=== PATIENT | female | born 1970 | race African-American/Black ===

== ENCOUNTER 2017-06-01 11:16 | Inpatient (IN) | payer BC, MEDICAID ==
[~2017-06-01] VITALS: Ht 172.7 cm; Wt 76.2 kg
[2017-06-01 11:35] VITALS: BP 133/75
[2017-06-01 12:29] LABS: BASOPHILS % (AUTO) 0.7 % (0.0-2.0); EOSINOPHILS % (AUTO) 0.9 % (0.0-3.0); LYMPHOCYTES % (AUTO) 26.4 % (20.0-45.0); MEAN CORPUSCULAR HEMOGLOBIN 27.8 PG (27.0-31.0); MEAN CORPUSCULAR HGB CONC 30.4 G/DL (32.0-36.0); MEAN CORPUSCULAR VOLUME 91 FL (80-99); MEAN PLATELET VOLUME 6.3 FL (6.5-10.1); MONOCYTES % (AUTO) 5.7 % (1.0-10.0); NEUTROPHILS % (AUTO) 66.3 % (45.0-75.0); PLATELET COUNT 295 K/UL (150-450); RED BLOOD COUNT 5.21 M/UL (4.20-5.40); RED CELL DISTRIBUTION WIDTH 14.4 % (11.6-14.8); WHITE BLOOD COUNT 9.9 K/UL (4.8-10.8)
[2017-06-01 12:42] LABS: ALANINE AMINOTRANSFERASE 15 U/L (3-33); ALBUMIN/GLOBULIN RATIO 1.7 (1.0-2.7); ANION GAP 13 (5-15); ASPARTATE AMINO TRANSFERASE 13 U/L (5-40); CALCIUM 9.5 mg/dL (8.6-10.2); CARBON DIOXIDE 25 mEQ/L (20-30); CHLORIDE 104 mEQ/L (98-107); GLOMERULAR FILTRATION RATE > 60 mL/min (>60); HEMOLYSIS 8; POTASSIUM 3.5 mEQ/L (3.4-4.9); SODIUM 142 mEQ/L (135-145); TOTAL PROTEIN 6.9 g/dL (6.6-8.7); TROPONIN I < 0.30 ng/mL (<=0.30)
[2017-06-01 12:52] LABS: CKMB < 1.5 ng/mL (< 3.8)
[2017-06-01 13:33] VITALS: BP 131/77
[2017-06-01] MEDS ORDERED: DICLOFENAC SODI75 MG ORAL (13:33)
[2017-06-01] MEDS ORDERED: GABAPENTIN300 MG ORAL (13:33)
[2017-06-01] MEDS ORDERED: METFORMIN HCL500 M1 ORAL (13:33)
[2017-06-01] MEDS ORDERED: CYCLOBENZAPRINE10 MG ORAL (13:33)
[2017-06-01] MEDS ORDERED: TOPIRAMATE100 MG ORAL (13:37)
[2017-06-01] MEDS ORDERED: PYRIDOSTIGMINE60 M1 PO (13:37)
[2017-06-01] MEDS ORDERED: ANUSOL HC1 SUPP RECTAL (13:37)
[2017-06-01] MEDS ORDERED: NATURE-THROI16.25 MG PO (13:37)
[2017-06-01] MEDS ORDERED: MIRALAX17 G2 ORAL (13:48)
[2017-06-01] MEDS ORDERED: KRILL OIL500 MG PO (13:48)
[2017-06-01] MEDS ORDERED: MIACALCIN1 SPRAYS NASAL (13:48)
[2017-06-01] MEDS ORDERED: PROBIOTIC1 EAC5 PO (13:48)
[2017-06-01] MEDS ORDERED: TRULANCE3 MG PO (13:48)
[2017-06-01] MEDS ORDERED: ALLEGRA ALLERG180 M1 PO (13:48)
[2017-06-01] MEDS ORDERED: CURCUMIN1 GM PO (13:48)
[2017-06-01] MEDS ORDERED: MELATONIN5 M6 PO (13:48)
[2017-06-01] MEDS ORDERED: CALCIUM CITRAT200 M1 PO (13:48)
[2017-06-01] MEDS ORDERED: SAME200 MG PO (13:48)
[2017-06-01] MEDS ORDERED: MAGNESIUM400 M1 PO (13:48)
[2017-06-01] MEDS ORDERED: [UNRECOGNIZED DRUG - OTHER] MC (13:48)
[2017-06-01] MEDS ORDERED: PROGESTERONE100 MG PO (13:48)
[2017-06-01] MEDS ORDERED: VITAMIN E200 UNI2 PO (13:50)
[2017-06-01] MEDS ORDERED: TAURINE PO (13:50)
[2017-06-01] MEDS ORDERED: VITAMIN D400 INTLU ORAL (13:50)
[2017-06-01] MEDS ORDERED: VITAMIN C1000 M4 PO (13:50)
[2017-06-01] MEDS ORDERED: STOOL SOFTENER100 M1 PO (13:50)
--- NOTE | 2017-06-01 13:54 | Diagnostic Imaging Report ---
Indication: Chest pain Comparison: None A single view chest radiograph was obtained. Findings: Cardiomediastinal appearance is within normal limits for age. Pulmonary vascularity is appropriate. The diaphragmatic contour is smooth and costophrenic angles are sharp. No pleural effusions are identified. The bones are unremarkable. Impression: No acute findings
[2017-06-01] MEDS ORDERED: Nitroglycerin Subl 0.4mg tab SL ONE (14:32)
[2017-06-01] MEDS ORDERED: Nitroglycerin Subl 0.4mg tab SL PRN (14:45)
--- NOTE | 2017-06-01 14:53 | Emergency Room Report ---
History of Present Illness General Chief Complaint: Chest Pain Source: Patient Present Illness HPI 47-year-old female presents ED complaining of chest pain. Patient states chest pain started today while she was across street at a doctor's office. Patient states the pain started while she was laying down did not improve so the doctor told her to come to the ER for evaluation. Pain is left-sided, sharp, 8/10, nonradiating. Intermittent. Denies shortness of breath. Patient currently has no chest pain on evaluation. Denies smoking or drug use. No other aggravating relieving factors. Denies any other associated symptoms Allergies: Coded Allergies: BACLOFEN (Verified Allergy, Unknown, 06/01/17) CINNAMON (Verified Allergy, Unknown, 06/01/17) CIPROFLOXACIN (Verified Allergy, Unknown, 06/01/17) CLAMS (Verified Allergy, Unknown, 06/01/17) DULOXETINE (Verified Allergy, Unknown, 06/01/17) MEPERIDINE (Verified Allergy, Unknown, 06/01/17) METHYLPREDNISOLONE (Verified Allergy, Unknown, 06/01/17) Uncoded Allergies: CODIENE (Allergy, Unknown, 06/01/17) PEANUTS (Allergy, Unknown, 06/01/17) PECANS (Allergy, Unknown, 06/01/17) QUINOLONE (Allergy, Unknown, 06/01/17) SULFA (Allergy, Unknown, 06/01/17) Patient History Past Medical History: DM, asthma, migraines, other - gastroparesis Past Surgical History: none Pertinent Family History: none Social History: Denies: smoking, alcohol use, drug use Last Menstrual Period: Post [place] Now: No Immunizations: UTD Reviewed Nursing Documentation: PMH: Agreed, PSxH: Agreed Nursing Documentation-PMH Past Medical History: No History, Except For Hx Cardiac Problems: No Hx Hypertension: No Hx Pacemaker: No Hx Asthma: Yes - reactive airways Hx COPD: No Hx Diabetes: Yes - Insulin ressistant Hx Cancer: No Hx Gastrointestinal Problems: Yes - gastroperisis Hx Dialysis: No History Of Psychiatric Problem: No Hx Neurological Problems: Yes - Migraines Hx Cerebrovascular Accident: No Hx Seizures: No Review of Systems All Other Systems: negative except mentioned in HPI Physical Exam Vital Signs Date Time Temp Pulse Resp B/P (MAP) Pulse Ox O2 Delivery O2 Flow Rate FiO2 06/01/17 11:22 97.7 77 17 146/88 100 Room Air Sp02 EP Interpretation: reviewed, normal General Appearance: no apparent distress, alert, GCS 15, non-toxic Head: normocephalic, atraumatic Eyes: bilateral eye normal inspection, bilateral eye PERRL ENT: hearing grossly normal, normal pharynx, no angioedema, normal voice Neck: full range of motion, supple/symm/no masses Respiratory: chest non-tender, lungs clear, normal breath sounds, speaking full sentences Cardiovascular #1: regular rate, rhythm, no edema Cardiovascular #2: 2+ carotid (R), 2+ carotid (L), 2+ radial (R), 2+ radial (L) , 2+ dorsalis pedis (R), 2+ dorsalis pedis (L) Gastrointestinal: normal bowel sounds, non tender, soft, non-distended, no guarding, no rebound Rectal: deferred Genitourinary: normal inspection, no CVA tenderness Musculoskeletal: back normal, gait/station normal, normal range of motion, non- tender Neurologic: alert, oriented x3, responsive, motor strength/tone normal, sensory intact, speech normal Psychiatric: judgement/insight normal, memory normal, mood/affect normal, no suicidal/homicidal ideation Reflexes: 3+ bicep (R), 3+ bicep (L), 3+ tricep (R), 3+ tricep (L), 3+ knee (R) , 3+ knee (L) Skin: normal color, no rash, warm/dry, well hydrated Lymphatic: no adenopathy Medical Decision Making Diagnostic Impression: Primary Impression: ACS (acute coronary syndrome) ER Course Hospital Course 47-year-old female presents ED complaining of left-sided chest pain Differential diagnoses include: NC/unstable angina, contusion, muscle strain, PTX, rib fracture Clinical course Patient placed on stretcher. on cardiac surgeon. After initial history and physical I ordered labs, EKG, chest x-ray labs reviewed- no leukocytosis, hemoglobin/hematocrit stable, electrolytes okay , troponins negative EKG-normal sinus rhythm no acute ischemic changes interpreted by me Chest x-ray- unremarkable Intermittent presentation is concerning and I believe patient should be admitted. Given nitroglycerin for the chest pain. given aspirin Case discussed with Dr. Esquivel and he agreed to accept the patient to his service for further care and support I. I feel this is a highly complex case requiring extensive working including EKG/Rhythm strip, Xray/CT/US, Blood/urine lab work, repeat exams while in ED, and administration of strong opiates/narcotics for pain control, admission to hospital or close patient follow up. Diagnosis - ACS admitted to telemetry in serious condition Labs Test 06/01/17 12:10 06/01/17 12:39 White Blood Count 9.9 K/UL (4.8-10.8) Red Blood Count 5.21 M/UL (4.20-5.40) Hemoglobin 14.5 G/DL (12.0-16.0) Hematocrit 47.6 % (37.0-47.0) Mean Corpuscular Volume 91 FL (80-99) Mean Corpuscular Hemoglobin 27.8 PG (27.0-31.0) Mean Corpuscular Hemoglobin Concent 30.4 G/DL (32.0-36.0) Red Cell Distribution Width 14.4 % (11.6-14.8) Platelet Count 295 K/UL (150-450) Mean Platelet Volume 6.3 FL (6.5-10.1) Neutrophils (%) (Auto) 66.3 % (45.0-75.0) Lymphocytes (%) (Auto) 26.4 % (20.0-45.0) Monocytes (%) (Auto) 5.7 % (1.0-10.0) Eosinophils (%) (Auto) 0.9 % (0.0-3.0) Basophils (%) (Auto) 0.7 % (0.0-2.0) Sodium Level 142 mEQ/L (135-145) Potassium Level 3.5 mEQ/L (3.4-4.9) Chloride Level 104 mEQ/L (98-107) Carbon Dioxide Level 25 mEQ/L (20-30) Anion Gap 13 (5-15) Blood Urea Nitrogen 15 mg/dL (7-23) Creatinine 1.0 mg/dL (0.5-0.9) Estimat Glomerular Filtration Rate > 60 mL/min (>60) Glucose Level 87 mg/dL (74-106) Calcium Level 9.5 mg/dL (8.6-10.2) Total Bilirubin < 0.2 mg/dL (0.0-1.2) Aspartate Amino Transf (AST/SGOT) 13 U/L (5-40) Alanine Aminotransferase (ALT/SGPT) 15 U/L (3-33) Alkaline Phosphatase 56 U/L (35-104) Total Creatine Kinase 72 U/L (26-140) Creatine Kinase MB < 1.5 ng/mL (< 3.8) Creatine Kinase MB Relative Index 2.0 Troponin I < 0.30 ng/mL (<=0.30) Pro-B-Type Natriuretic Peptide 97 pg/mL (0-125) Total Protein 6.9 g/dL (6.6-8.7) Albumin 4.4 g/dL (3.5-5.2) Globulin 2.5 g/dL Albumin/Globulin Ratio 1.7 (1.0-2.7) Urine HCG, Qualitative Negative EKG Diagnostic Results Rate: normal Rhythm: NSR ST Segments: no acute changes ASA given to the pt in ED: Yes Rhythm Strip Diag. Results EP Interpretation: yes Rhythm: NSR, no PVC's, no ectopy Chest X-Ray Diagnostic Results Chest X-Ray Diagnostic Results : Chest X-Ray Ordered: Yes # of Views/Limited/Complete: 1 View Indication: Chest Pain EP Interpretation: Yes Interpretation: no consolidation, no effusion, no pneumothorax, no acute cardiopulmonary disease Impression: No acute disease Interpreting ER Provider: Electronically signed by Ulysses Pichardo MD Last Vital Signs Date Time Temp Pulse Resp B/P (MAP) Pulse Ox O2 Delivery O2 Flow Rate FiO2 06/01/17 14:38 118/72 06/01/17 13:33 97.1 68 16 100 Room Air Status: improved Disposition: ADMITTED INPATIENT Condition: Serious Referrals: NON PHYSICIAN (PCP) ULYSSES PICHARDO M.D. Jun 01, 2017 14:53
[2017-06-01 15:21] VITALS: BP 122/75
[2017-06-01] MEDS ORDERED: DuoNeb 0.5-3(2.5)mg/3ml neb HHN PRN (16:00)
[2017-06-01] MEDS ORDERED: Morphine Sulfate 4mg/ml Inj IVP PRN (16:00)
[2017-06-01] MEDS ORDERED: Zolpidem 5mg tab ORAL PRN (16:00)
[2017-06-01] MEDS ORDERED: Mylanta II UD 30ml ORAL PRN (16:00)
[2017-06-01] MEDS ORDERED: Morphine Sulfate 2mg/ml Inj IVP PRN (16:00)
[2017-06-01] MEDS ORDERED: Milk of Magnesia 30ml Ud ORAL PRN (16:00)
[2017-06-01 16:06] VITALS: BP 125/78
--- NOTE | 2017-06-01 16:09 | History and Physical ---
History of Present Illness General Date patient seen: Jun 01, 2017 Time patient seen: 16:09 Reason for Hospitalization: Chest Pain Present Illness HPI 47yo female with pmh of depression/anxiety, chronic back pain, migraines, asthma who presents with chest pain. Patient states chest pain started today while she was across street at a doctor's office. Patient states the pain started while she was laying down did not improve so the doctor told her to come to the ER for evaluation. Pain is left-sided, sharp, 8/10, nonradiating. Intermittent. Denies shortness of breath, f/c, n/v, d/c, abd pain. Allergies: Coded Allergies: BACLOFEN (Verified Allergy, Unknown, 06/01/17) CINNAMON (Verified Allergy, Unknown, 06/01/17) CIPROFLOXACIN (Verified Allergy, Unknown, 06/01/17) CLAMS (Verified Allergy, Unknown, 06/01/17) DULOXETINE (Verified Allergy, Unknown, 06/01/17) MEPERIDINE (Verified Allergy, Unknown, 06/01/17) METHYLPREDNISOLONE (Verified Allergy, Unknown, 06/01/17) Uncoded Allergies: CODIENE (Allergy, Unknown, 06/01/17) PEANUTS (Allergy, Unknown, 06/01/17) PECANS (Allergy, Unknown, 06/01/17) QUINOLONE (Allergy, Unknown, 06/01/17) SULFA (Allergy, Unknown, 06/01/17) Medication History Scheduled Ascorbic Acid (Vitamin C), 1,000 MG PO DAILY, (Reported) Calcitonin Paxton (Miacalcin), 1 SPRAYS NASAL DAILY, (Reported) Calcium Citrate (Calcium Citrate), 630 MG PO DAILY, (Reported) Cyclobenzaprine Hcl* (Flexeril*), 10 MG ORAL DAILY, (Reported) Diclofenac Sod* (Voltaren*), 75 MG ORAL BID, (Reported) Docusate Sodium (Stool Softener), 100 MG PO BID, (Reported) Fexofenadine Hcl (Trang Allergy), 180 MG PO DAILY, (Reported) Gabapentin* (Gabapentin*), 300 MG ORAL THREE TIMES A DAY, (Reported) Hydrocortisone (Anucort-Hc), 25 MG RECTAL PRN, (Reported) Krill Oil (Krill Oil), Unknown Dose PO DAILY, (Reported) Lactobacillus Combo No.11 (Probiotic), 1 EACH PO DAILY, (Reported) Magnesium Oxide (Magnesium), 400 MG PO DAILY, (Reported) Melatonin (Melatonin), 10 MG PO DAILY, (Reported) Metformin Hcl* (Metformin Hcl*), 500 MG ORAL DAILY, (Reported) Plecanatide (Trulance), 3 MG PO DAILY, (Reported) Polyethylene Glycol 3350* (Miralax*), Unknown Dose ORAL DAILY, (Reported) Progesterone,Micronized (Progesterone), 100 MG PO DAILY, (Reported) Pyridostigmine Bradford (Pyridostigmine Bradford), 60 MG PO TID, (Reported) S-Adenosylmethionine Sul Tosyl (Same), 400 MG PO DAILY, (Reported) Serotonin Hcl (Serotonin Hcl), 1 GM MC BID, (Reported) Taurine (Taurine), 500 MG PO BID, (Reported) Thyroid,Pork (Nature-Throid), 16.25 MG PO DAILY, (Reported) Topiramate* (Topamax*), 100 MG ORAL TWICE A DAY, (Reported) Turmeric (Curcumin), 500 GM PO DAILY, (Reported) Vitamin D (Vitamin D3), 2,000 MG ORAL DAILY, (Reported) Vitamin E (Dl,Tocopheryl Acet) (Vitamin E), 400 UNIT PO DAILY, (Reported) Patient History Healthcare decision maker Resuscitation status Advanced Directive on File Past Medical/Surgical History Past Medical/Surgical History: (1) Depression (2) DM2 (diabetes mellitus, type 2) (3) Hypothyroidism (4) Chronic back pain (5) Migraines (6) Asthma Family History Family History: Patient reports no known family medical history. Social History Social History: (1) No significant social history Review of Systems ROS Narrative CONSTITUTIONAL: No weight loss, fever, chills, weakness or fatigue. HEENT: Eyes: No visual loss, blurred vision, double vision or yellow sclerae. Ears, Nose, Throat: No hearing loss, sneezing, congestion, runny nose or sore throat. SKIN: No rash or itching. CARDIOVASCULAR: +chest pain, chest pressure or chest discomfort. No palpitations or edema. RESPIRATORY: No shortness of breath, cough or sputum. GASTROINTESTINAL: No anorexia, nausea, vomiting or diarrhea. No abdominal pain or blood. NEUROLOGICAL: No headache, dizziness, syncope, paralysis, ataxia, numbness or tingling in the extremities. No change in bowel or bladder control. MUSCULOSKELETAL: No muscle, back pain, joint pain or stiffness. HEMATOLOGIC: No anemia, bleeding or bruising. LYMPHATICS: No enlarged nodes. No history of splenectomy. PSYCHIATRIC: No history of depression or anxiety. ENDOCRINOLOGIC: No reports of sweating, cold or heat intolerance. No polyuria or polydipsia. ALLERGIES: No history of asthma, hives, eczema or rhinitis. Physical Exam Physical Exam Narrative General: alert, cooperative, no distress, appears stated age Head: normocephalic, without obvious abnormality, atraumatic Eyes: conjunctivae/corneas clear. PERRL, EOM's intact Throat: lips, mucosa, and tongue normal. MMM Neck: supple, symmetrical, trachea midline, and no JVD Lungs: clear to auscultation bilaterally Heart: regular rate and rhythm, S1, S2 normal, no murmur, click, rub or gallop Abdomen: soft, non-tender, non-distended, bowel sounds normal; no masses or organomegaly Extremities: extremities normal, atraumatic, no cyanosis or edema Pulses: 2+ and symmetric Skin: skin color, texture, turgor normal; no rashes or lesions Neurologic: grossly normal, no focal deficits Last 24 Hour Vital Signs Date Time Temp Pulse Resp B/P (MAP) Pulse Ox O2 Delivery O2 Flow Rate FiO2 06/01/17 16:06 97.0 75 18 125/78 99 Room Air 06/01/17 15:45 64 16 122/75 100 Room Air 06/01/17 15:21 63 16 122/75 96 Room Air 06/01/17 14:38 118/72 06/01/17 13:33 97.1 68 16 131/77 100 Room Air 06/01/17 11:35 98.0 78 15 133/75 100 Room Air 06/01/17 11:35 78 15 Room Air 06/01/17 11:22 97.7 77 17 146/88 100 Room Air Laboratory Tests Test 06/01/17 12:10 06/01/17 12:39 White Blood Count 9.9 K/UL (4.8-10.8) Red Blood Count 5.21 M/UL (4.20-5.40) Hemoglobin 14.5 G/DL (12.0-16.0) Hematocrit 47.6 % (37.0-47.0) H Mean Corpuscular Volume 91 FL (80-99) Mean Corpuscular Hemoglobin 27.8 PG (27.0-31.0) Mean Corpuscular Hemoglobin Concent 30.4 G/DL (32.0-36.0) L Red Cell Distribution Width 14.4 % (11.6-14.8) Platelet Count 295 K/UL (150-450) Mean Platelet Volume 6.3 FL (6.5-10.1) L Neutrophils (%) (Auto) 66.3 % (45.0-75.0) Lymphocytes (%) (Auto) 26.4 % (20.0-45.0) Monocytes (%) (Auto) 5.7 % (1.0-10.0) Eosinophils (%) (Auto) 0.9 % (0.0-3.0) Basophils (%) (Auto) 0.7 % (0.0-2.0) Sodium Level 142 mEQ/L (135-145) Potassium Level 3.5 mEQ/L (3.4-4.9) Chloride Level 104 mEQ/L (98-107) Carbon Dioxide Level 25 mEQ/L (20-30) Anion Gap 13 (5-15) Blood Urea Nitrogen 15 mg/dL (7-23) Creatinine 1.0 mg/dL (0.5-0.9) H Estimat Glomerular Filtration Rate > 60 mL/min (>60) Glucose Level 87 mg/dL (74-106) Calcium Level 9.5 mg/dL (8.6-10.2) Total Bilirubin < 0.2 mg/dL (0.0-1.2) Aspartate Amino Transf (AST/SGOT) 13 U/L (5-40) Alanine Aminotransferase (ALT/SGPT) 15 U/L (3-33) Alkaline Phosphatase 56 U/L (35-104) Total Creatine Kinase 72 U/L (26-140) Creatine Kinase MB < 1.5 ng/mL (< 3.8) Creatine Kinase MB Relative Index 2.0 Troponin I < 0.30 ng/mL (<=0.30) Pro-B-Type Natriuretic Peptide 97 pg/mL (0-125) Total Protein 6.9 g/dL (6.6-8.7) Albumin 4.4 g/dL (3.5-5.2) Globulin 2.5 g/dL Albumin/Globulin Ratio 1.7 (1.0-2.7) Urine HCG, Qualitative Negative Height (Feet): 5 Height (Inches): 8.00 Weight (Pounds): 168 Medications Current Medications Medications (Trade) Dose Ordered Sig/Shayy Route PRN Reason Start Time Stop Time Status Last Admin Dose Admin Nitroglycerin (Ntg) 0.4 mg Q5M PRN SL Prn Chest Pain 06/01/17 14:45 07/01/17 14:44 06/01/17 14:38 Assessment/Plan Problem List: (1) Chest pain ICD Codes: R07.9 - Chest pain, unspecified SNOMED: 08526733 (2) DM2 (diabetes mellitus, type 2) ICD Codes: E11.9 - Type 2 diabetes mellitus without complications SNOMED: 75214136 (3) Hypothyroidism ICD Codes: E03.9 - Hypothyroidism, unspecified SNOMED: 01466050 (4) Depression ICD Codes: F32.9 - Major depressive disorder, single episode, unspecified SNOMED: 75654017 (5) Chronic back pain ICD Codes: M54.9 - Dorsalgia, unspecified; G89.29 - Other chronic pain SNOMED: 675618006 Status: stable Assessment/Plan Admit inpt Trend trop/ekg Check TTE Cardiology consulted Nuc stress test ordered Check lipid panel, A1C, TSH Cont home meds HSQ for DVT ppx FULL CODE D/w pt, RN, cardiology regarding mgmt and dispo Jf Cabral M.D. Jun 01, 2017 16:09
[2017-06-01] MEDS ORDERED: traMADol 50mg tab ORAL PRN (17:30)
[2017-06-01] MEDS ORDERED: Miralax 17gm pkt ORAL PRN (17:30)
--- NOTE | 2017-06-01 17:50 | Cardiac Electrophysiology PN ---
Subjective Subjective [id number] Objective Last 24 Hour Vital Signs Date Time Temp Pulse Resp B/P (MAP) Pulse Ox O2 Delivery O2 Flow Rate FiO2 06/01/17 16:06 97.0 75 18 125/78 99 Room Air 06/01/17 15:45 64 16 122/75 100 Room Air 06/01/17 15:21 63 16 122/75 96 Room Air 06/01/17 14:38 118/72 06/01/17 13:33 97.1 68 16 131/77 100 Room Air 06/01/17 11:35 98.0 78 15 133/75 100 Room Air 06/01/17 11:35 78 15 Room Air 06/01/17 11:22 97.7 77 17 146/88 100 Room Air Laboratory Tests Test 06/01/17 12:10 06/01/17 12:39 06/01/17 17:30 White Blood Count 9.9 K/UL (4.8-10.8) Red Blood Count 5.21 M/UL (4.20-5.40) Hemoglobin 14.5 G/DL (12.0-16.0) Hematocrit 47.6 % (37.0-47.0) H Mean Corpuscular Volume 91 FL (80-99) Mean Corpuscular Hemoglobin 27.8 PG (27.0-31.0) Mean Corpuscular Hemoglobin Concent 30.4 G/DL (32.0-36.0) L Red Cell Distribution Width 14.4 % (11.6-14.8) Platelet Count 295 K/UL (150-450) Mean Platelet Volume 6.3 FL (6.5-10.1) L Neutrophils (%) (Auto) 66.3 % (45.0-75.0) Lymphocytes (%) (Auto) 26.4 % (20.0-45.0) Monocytes (%) (Auto) 5.7 % (1.0-10.0) Eosinophils (%) (Auto) 0.9 % (0.0-3.0) Basophils (%) (Auto) 0.7 % (0.0-2.0) Sodium Level 142 mEQ/L (135-145) Potassium Level 3.5 mEQ/L (3.4-4.9) Chloride Level 104 mEQ/L (98-107) Carbon Dioxide Level 25 mEQ/L (20-30) Anion Gap 13 (5-15) Blood Urea Nitrogen 15 mg/dL (7-23) Creatinine 1.0 mg/dL (0.5-0.9) H Estimat Glomerular Filtration Rate > 60 mL/min (>60) Glucose Level 87 mg/dL (74-106) Calcium Level 9.5 mg/dL (8.6-10.2) Total Bilirubin < 0.2 mg/dL (0.0-1.2) Aspartate Amino Transf (AST/SGOT) 13 U/L (5-40) Alanine Aminotransferase (ALT/SGPT) 15 U/L (3-33) Alkaline Phosphatase 56 U/L (35-104) Total Creatine Kinase 72 U/L (26-140) Creatine Kinase MB < 1.5 ng/mL (< 3.8) Creatine Kinase MB Relative Index 2.0 Troponin I < 0.30 ng/mL (<=0.30) Pending Pro-B-Type Natriuretic Peptide 97 pg/mL (0-125) Total Protein 6.9 g/dL (6.6-8.7) Albumin 4.4 g/dL (3.5-5.2) Globulin 2.5 g/dL Albumin/Globulin Ratio 1.7 (1.0-2.7) Urine HCG, Qualitative Negative Activated Partial Thromboplast Time 29 SEC (23-33) CLAUDINE ULRICH Jun 01, 2017 17:50
[2017-06-01 17:58] LABS: TROPONIN I < 0.30 ng/mL (<=0.30)
[2017-06-01] MEDS ORDERED: Topiramate 100mg tab ORAL SCH (18:00)
[2017-06-01] MEDS ORDERED: Pyridostigmine 60mg tab ORAL SCH (19:00)
[2017-06-01 20:00] VITALS: BP 109/64
[2017-06-01] MEDS ORDERED: Atorvastatin 80mg tab ORAL SCH (21:00)
[2017-06-01] MEDS: Topiramate 100mg tab ORAL SCH (21:39)
[2017-06-01] MEDS: Docusate 100mg cap ORAL SCH (21:41)
[2017-06-01] MEDS: Heparin 5000 units/ml inj SUBQ SCH (21:43)
[2017-06-02] VITALS: BP 110/63
[2017-06-02 04:00] VITALS: BP 114/70
--- NOTE | 2017-06-02 06:00 | Consultation ---
DATE OF CONSULTATION: 06/01/2017 CARDIOLOGY CONSULTATION CONSULTING PHYSICIAN: Ozzie Simmons M.D. REFERRING PHYSICIAN: Del Escamilla M.D. REASON FOR CONSULTATION: Chest pain. HISTORY OF PRESENT ILLNESS: The patient is a very pleasant 47-year-old lady with history of diabetes on metformin as well as chronic pain syndrome, who came to the emergency room complaining of chest pain. The pain started when she was across the street at doctor's office. The pain was left-sided, 8/10, was nonradiating, and was intermittent. By the time she came to the emergency room, the chest pain was relieved. The patient states that she has had chest pain in the past, but not as significant. The patient was admitted and a Cardiology consultation was obtained for further evaluation and management. MEDICATIONS: Per reconciliation. ALLERGIES: She is allergic to baclofen, Sinemet, Cipro, meperidine, and prednisolone. SOCIAL HISTORY: She lives at home. Does not smoke or drink alcohol. FAMILY HISTORY: Noncontributory. REVIEW OF SYSTEMS: Review of systems was thoroughly performed and was negative other than what was mentioned in the history of present illness. PHYSICAL EXAMINATION: VITAL SIGNS: Blood pressure 125/70, pulse 75, respirations 18, and she is afebrile. HEAD AND NECK: Showed no JVD or carotid bruits. LUNGS: Clear. CARDIOVASCULAR: Shows regular S1 and S2 with no gallop or murmur. ABDOMEN: Soft. EXTREMITIES: No pitting edema. LABORATORY AND DIAGNOSTIC DATA: Showed white count 9.9, hemoglobin 14.1, hematocrit 47.7, and platelets 295,000. Sodium is 142, potassium 3.5, BUN 15, creatinine 1, and glucose of 87. First troponin is negative. INR is 29. Her EKG showed normal sinus rhythm and normal electrocardiogram. ASSESSMENT AND PLAN: 1. Atypical chest pain. The first troponin is negative and EKG is completely normal. We will completely rule out myocardial infarction protocol and get an echocardiogram and if all negative, proceed with a nuclear stress test for further evaluation. 2. Diabetes. The patient is on metformin. 3. Hypothyroidism, on Synthroid. 4. Chronic pain syndrome. Thank you very much, Dr. Escamilla, for allowing me to participate in the care of this patient. Please do not hesitate to contact me for any questions regarding my evaluation. Ozzie Simmons M.D. DR: SAGAR JOB#: [id number] CC:
[2017-06-02 08:22] LABS: EOSINOPHILS % (AUTO) 1.5 % (0.0-3.0); LYMPHOCYTES % (AUTO) 37.6 % (20.0-45.0); MEAN CORPUSCULAR HEMOGLOBIN 27.5 PG (27.0-31.0); MEAN CORPUSCULAR HGB CONC 30.7 G/DL (32.0-36.0); MEAN CORPUSCULAR VOLUME 90 FL (80-99); MEAN PLATELET VOLUME 6.7 FL (6.5-10.1); MONOCYTES % (AUTO) 6.7 % (1.0-10.0); NEUTROPHILS % (AUTO) 53.2 % (45.0-75.0); PLATELET COUNT 279 K/UL (150-450); RED BLOOD COUNT 4.97 M/UL (4.20-5.40); RED CELL DISTRIBUTION WIDTH 14.1 % (11.6-14.8); WHITE BLOOD COUNT 8.1 K/UL (4.8-10.8)
[2017-06-02 08:42] LABS: TROPONIN I < 0.30 ng/mL (<=0.30)
[2017-06-02 08:45] LABS: ANION GAP 10 (5-15); CALCIUM 9.3 mg/dL (8.6-10.2); CARBON DIOXIDE 26 mEQ/L (20-30); CHLORIDE 109 mEQ/L (98-107); CHOLESTEROL 196 mg/dL (< 200); CHOLESTEROL/HDL RATIO 2.8 (3.3-4.4); CREATININE 0.9 mg/dL (0.5-0.9); GLOMERULAR FILTRATION RATE > 60 mL/min (>60); HEMOLYSIS 7; LDL CHOLESTEROL (CALC.) 103 mg/dL (60-99); SODIUM 145 mEQ/L (135-145)
[2017-06-02 08:49] LABS: THYROID STIMULATING HORMONE 0.553 uIU/mL (0.300-4.500)
[2017-06-02] MEDS ORDERED: Vitamin D 1000 IU Tab ORAL SCH (09:00)
[2017-06-02] MEDS ORDERED: Pyridostigmine 60mg tab ORAL SCH ×3 (09:00→21:00)
[2017-06-02] MEDS ORDERED: Aspirin EC 81mg tab ORAL SCH (09:00)
[2017-06-02] MEDS ORDERED: Cyclobenzaprine 10mg Tab ORAL SCH (09:00)
[2017-06-02] MEDS ORDERED: Miralax 17gm pkt ORAL SCH (09:00)
[2017-06-02] MEDS: Docusate 100mg cap ORAL SCH (09:04)
[2017-06-02] MEDS: Topiramate 100mg tab ORAL SCH (09:04)
[2017-06-02] MEDS: Heparin 5000 units/ml inj SUBQ SCH (09:12)
[2017-06-02 09:28] LABS: HEMOGLOBIN A1C 5.4 % (< 6.0)
[2017-06-02 12:01] VITALS: BP 108/62
--- NOTE | 2017-06-02 15:32 | Diagnostic Imaging Report ---
Indication: chest pain Technique: The study was conducted under the supervision of a fuse spooler. Dolbutamine administration followed by intravenous administration of 33 mCi of technetium 99m Myoview was performed. Three plane SPECT imaging of the heart was then performed. A resting study was performed as part of the one-day protocol with 10.5 mCi of technetium 99m myoview injected intravenously at that time. Three plane SPECT imaging of the heart was obtained. Comparison: None Clinical data: Resting heart rate: 60. Peak heart rate: 145 (84% maximum predicted heart rate). Resting BP: 115/70. Peak BP: 157/86 No symptoms. EKG with: Normal sinus rhythm 1. Clinical response: Non ischemic 2. Electrocardiographic response: Non ischemic Findings: The myocardial perfusion scan demonstrates LVEF 78%. No fixed or reversible perfusion defects demonstrated. Impression: Negative myocardial perfusion scan
[2017-06-02 16:15] VITALS: BP 91/58
--- NOTE | 2017-06-02 17:29 | Cardiac Electrophysiology PN ---
Assessment/Plan Assessment/Plan 1. Atypical chest pain. Ruled out for FL and EKG is completely normal. Echocardiogram showed NL EF.Nuclear stress test showed no ischemia 2. Diabetes. On metformin. 3. Hypothyroidism, on Synthroid. 4. Chronic pain syndrome. OK to DC from cardiac standpoint Subjective Subjective Had Dobutamine Cardiolite today. No chest pain or SOB. Objective Last 24 Hour Vital Signs Date Time Temp Pulse Resp B/P (MAP) Pulse Ox O2 Delivery O2 Flow Rate FiO2 06/02/17 16:15 97.5 68 18 91/58 99 Room Air 68 06/02/17 12:01 96.0 18 18 108/62 90 Nasal Cannula 06/02/17 12:00 59 06/02/17 08:00 64 06/02/17 07:58 80 16 Room Air 06/02/17 04:00 97.0 65 20 114/70 99 Room Air 06/02/17 03:59 81 06/02/17 00:01 62 06/02/17 00:00 97.0 76 20 110/63 100 Room Air 06/01/17 21:33 85 16 Room Air 06/01/17 20:00 67 06/01/17 20:00 97.0 74 20 109/64 100 Room Air Laboratory Tests Test 06/01/17 17:30 06/02/17 07:40 Activated Partial Thromboplast Time 29 SEC (23-33) Troponin I < 0.30 ng/mL (<=0.30) < 0.30 ng/mL (<=0.30) White Blood Count 8.1 K/UL (4.8-10.8) Red Blood Count 4.97 M/UL (4.20-5.40) Hemoglobin 13.7 G/DL (12.0-16.0) Hematocrit 44.6 % (37.0-47.0) Mean Corpuscular Volume 90 FL (80-99) Mean Corpuscular Hemoglobin 27.5 PG (27.0-31.0) Mean Corpuscular Hemoglobin Concent 30.7 G/DL (32.0-36.0) L Red Cell Distribution Width 14.1 % (11.6-14.8) Platelet Count 279 K/UL (150-450) Mean Platelet Volume 6.7 FL (6.5-10.1) Neutrophils (%) (Auto) 53.2 % (45.0-75.0) Lymphocytes (%) (Auto) 37.6 % (20.0-45.0) Monocytes (%) (Auto) 6.7 % (1.0-10.0) Eosinophils (%) (Auto) 1.5 % (0.0-3.0) Basophils (%) (Auto) 1.0 % (0.0-2.0) Sodium Level 145 mEQ/L (135-145) Potassium Level 4.0 mEQ/L (3.4-4.9) Chloride Level 109 mEQ/L (98-107) H Carbon Dioxide Level 26 mEQ/L (20-30) Anion Gap 10 (5-15) Blood Urea Nitrogen 15 mg/dL (7-23) Creatinine 0.9 mg/dL (0.5-0.9) Estimat Glomerular Filtration Rate > 60 mL/min (>60) Glucose Level 97 mg/dL (74-106) Hemoglobin A1c 5.4 % (< 6.0) Calcium Level 9.3 mg/dL (8.6-10.2) Triglycerides Level 119 mg/dL (< 150) Cholesterol Level 196 mg/dL (< 200) LDL Cholesterol 103 mg/dL (60-99) H HDL Cholesterol 69 mg/dL (> 60) H Cholesterol/HDL Ratio 2.8 (3.3-4.4) L Thyroid Stimulating Hormone (TSH) 0.553 uIU/mL (0.300-4.500) Free Thyroxine 1.25 ng/dL (0.86-1.85) Objective HEAD AND NECK: Showed no JVD or carotid bruits. LUNGS: Clear. CARDIOVASCULAR: Regular S1 and S2 with no gallop or murmur. ABDOMEN: Soft. EXTREMITIES: No pitting edema. CLAUDINE ULRICH Jun 02, 2017 17:29
[2017-06-02] MEDS ORDERED: NS 275ml ONE (19:10)
--- NOTE | 2017-06-02 22:04 | Discharge Summary ---
Discharge Summary Hospital Course Date of Admission Jun 01, 2017 at 13:37 Date of Discharge Jun 02, 2017 at 19:11 Admitting Diagnosis chest pain Reason for Hospitalization: r/o ACS HPI 47yo female with pmh of depression/anxiety, chronic back pain, migraines, asthma who presents with chest pain. Patient states chest pain started today while she was across street at a doctor's office. Patient states the pain started while she was laying down did not improve so the doctor told her to come to the ER for evaluation. Pain is left-sided, sharp, 8/10, nonradiating. Intermittent. Denies shortness of breath, f/c, n/v, d/c, abd pain. Consultations Cardiology Hospital Course Pt was admitted to [facility] and ruled out for ACS with serial troponin and EKG. TTE showed normal EF. Pt was seen by cardiology and underwent nuclear stress test which was negative. Pt's chest pain likely atypical in nature, possibly MSK etiology. Discharge physical exam General: alert, cooperative, no distress, appears stated age Head: normocephalic, without obvious abnormality, atraumatic Eyes: conjunctivae/corneas clear. PERRL, EOM's intact Throat: lips, mucosa, and tongue normal. MMM Neck: supple, symmetrical, trachea midline, and no JVD Lungs: clear to auscultation bilaterally Heart: regular rate and rhythm, S1, S2 normal, no murmur, click, rub or gallop Abdomen: soft, non-tender, non-distended, bowel sounds normal; no masses or organomegaly Extremities: extremities normal, atraumatic, no cyanosis or edema Pulses: 2+ and symmetric Skin: skin color, texture, turgor normal; no rashes or lesions Neurologic: grossly normal, no focal deficits Discharge Medications Continued Medications: Ascorbic Acid (Vitamin C) 1,000 Mg Tablet.er 1000 MG PO DAILY, TAB Calcitonin [place] (Miacalcin) 3.7 Ml [place].pump 1 SPRAYS NASAL DAILY, SPRAY Calcium Citrate (Calcium Citrate) 200 Mg Tablet 630 MG PO DAILY, TAB Cyclobenzaprine Hcl* (Flexeril*) 10 Mg Tablet 10 MG ORAL DAILY, TAB Diclofenac Sod* (Voltaren*) 75 Mg Tablet.dr 75 MG ORAL BID, TAB Docusate Sodium (Stool Softener) 100 Mg Tablet 100 MG PO BID, TAB Fexofenadine Hcl (Trang Allergy) 180 Mg Tablet 180 MG PO DAILY, TAB Gabapentin* (Gabapentin*) 300 Mg Capsule 300 MG ORAL THREE TIMES A DAY, CAP 0 Refills Hydrocortisone (Anucort-Hc) Y Supp 25 MG RECTAL PRN Krill Oil (Krill Oil) 500 Mg Capsule Unknown Dose PO DAILY, CAP Lactobacillus Combo No.11 (Probiotic) 1 Each Cap.sprink 1 EACH PO DAILY, CAP Magnesium Oxide (Magnesium) 400 Mg Capsule 400 MG PO DAILY, CAP Melatonin (Melatonin) 5 Mg Tab.ir.er 10 MG PO DAILY Metformin Hcl* (Metformin Hcl*) 500 Mg Tablet 500 MG ORAL DAILY, TAB Plecanatide (Trulance) 3 Mg Tablet 3 MG PO DAILY, TAB Polyethylene Glycol 3350* (Miralax*) 17 Gm Powd.pack Unknown Dose ORAL DAILY, PACKET Progesterone,Micronized (Progesterone) 100 Mg Capsule 100 MG PO DAILY, CAP Pyridostigmine [place] (Pyridostigmine [place]) 60 Mg Tablet 60 MG PO TID, TAB S-Adenosylmethionine Sul Tosyl (Same) 200 Mg Tablet.dr 400 MG PO DAILY, TAB Serotonin Hcl (Serotonin Hcl) 1 Gm Powder 1 GM MC BID, GM Taurine (Taurine) 100 Gm Powder 500 MG PO BID, GM Thyroid,Pork (Nature-Throid) 16.25 Mg Tablet 16.25 MG PO DAILY, TAB Topiramate* (Topamax*) 100 Mg Tablet 100 MG ORAL TWICE A DAY, #60 TAB 0 Refills Turmeric (Curcumin) 1 Gm Powder 500 GM PO DAILY, GM Vitamin D (Vitamin D3) 400 Unit Tablet 2000 MG ORAL DAILY, TAB Vitamin E (Dl,Tocopheryl Acet) (Vitamin E) 200 Unit Capsule 400 UNIT PO DAILY, CAP Discharge Condition Upon Discharge: stable Discharge Disposition Patient was discharged to Home (01) Discharge Diagnoses: (1) Chest pain (2) DM2 (diabetes mellitus, type 2) (3) Hypothyroidism (4) Depression (5) Chronic back pain (6) Migraines (7) Asthma Jf Cabral M.D. Jun 02, 2017 22:04
[2017-06-03] MEDS ORDERED: Miralax 17gm pkt ORAL SCH (09:00)
--- NOTE | 2017-06-07 09:45 | Cardiology Report ---
APPROVED REPORT EXAM: Two-dimensional and M-mode echocardiogram with Doppler and color Doppler. INDICATION Chest Pain M-Mode DIMENSIONS IVSd0.6 (0.7-1.1cm)Left Atrium (MM)3.2 (1.6-4.0cm) LVDd3.0 (3.5-5.6cm)Aortic Root2.6 (2.0-3.7cm) PWd1.2 (0.7-1.1cm)Aortic Cusp Exc.1.7 (1.5-2.0cm) LVDs1.8 (2.5-4.0cm) PWs1.5 cm Normal left ventricular chamber size, systolic function and wall motion. Left ventricular ejection fraction estimated to be 55-60 %. No evidence of ventricular hypertrophy. Anterior Echo-free space, may be due to pericardial fat or effusion. All other cardiac chamber sizes are within normal limits. Normal appearing aortic, mitral, puImonic and tricuspid valves. Mild mitral annulus and aortic root calcification. IVC at normal size with physiologic collapse. A color flow and spectral Doppler study was performed and revealed: No aortic regurgitation. reduced left ventricular relaxation c/w mild diastolic dysfunction. No mitral regurgitation. Trace tricuspid regurgitation. Tricuspid systolic velocities suggests peak right ventricular systolic pressure of 9 mmHg. Mild pulmonic regurgitation present.
--- NOTE | 2017-06-19 16:13 | Cardiology Report ---
APPROVED REPORT EKG Measurement Heart [id number] Normal sinus rhythm Normal ECG
== END 2017-06-02 19:11 | disposition home or self-care (01) | DRG 313 ==
LOC: EMR 11:50 → 2E 13:37 → EDBEDREQ 14:13
DX: R07.89 Other chest pain (principal); K31.84 Gastroparesis; E11.43 Type 2 diabetes mellitus with diabetic autonomic (poly)neuropathy; G89.4 Chronic pain syndrome; E03.9 Hypothyroidism, unspecified; Z79.84 Long term (current) use of oral hypoglycemic drugs; G43.909 Migraine, unspecified, not intractable, without status migrainosus; J45.909 Unspecified asthma, uncomplicated; F32.89 Other specified depressive episodes
CPT/HCPCS: 36415; 71010; 78452; 80048; 80053; 80061; 81025; 82550; 82553; 82962; 83036; 83880; 84439; 84443; 84484; 85025; 85730; 93005; 93017; 93306; 94664; 99285